=== PATIENT | male | born 1990 | race African-American/Black ===

== ENCOUNTER 2019-03-09 17:35 | Emergency (ER) | payer SELFPAY ==
[2019-03-09 17:44] VITALS: BP 139/74; PULSE 95; TEMP 98.7; BMI 23.7
[2019-03-09] MEDS ORDERED: SODIUM CHLORIDE 1,000 ML IV STA (18:12)
[2019-03-09] MEDS ORDERED: KETOROLAC TROMETHAMINE 30 MG/1 ML VIAL IVPUSH ONE (18:12)
--- NOTE | 2019-03-09 18:12 | PDOC ---
History of Present Illness - General Chief Complaint: Sore Throat Stated Complaint: [place] SORE THROAT DIFF SWALLOWING Time Seen by Provider: 03/09/19 17:52 - History of Present Illness Initial Comments: 03/09/19 18:46 Chief complaint: Sore throat HPI: For 2 days the patient has had a severe sore throat, unable to swallow food or fluids very well, with swollen painful glands in the neck. Mild nonproductive cough. Anorexia. No vomiting or diarrhea. No abdominal pain Review of systems: Denies fever/chills, chest pain, shortness of breath, abdominal pain, nausea, vomiting, diarrhea, visual or focal neurologic symptoms , unsteadiness of gait. Remainder of systems negative Past medical history: Mild asthma, no recent flareups. Frequent sore throats when he was a child Social/family history reviewed and noncontributory Physical exam: Alert and oriented well-developed well-nourished cooperative. Complains of pain when he swallows. There is fatigue, malaise, and body aches. Afebrile, vital signs normal HEENT: The throat is severely injected, but there is no focal swelling, mass, or exudate. Ears are clear. Nose is clear Neck is supple but there are multiple 1 to 2 cm tender anterior cervical nodes bilaterally Chest is clear full breath sounds bilaterally no wheezes rales or rhonchi CV regular without murmur rub or gallop pulses full and symmetric no JVD or edema no bruits 100 and regular Abdomen soft nontender without mass organomegaly Skin clear, no rash, adequate turgor, but mucous membranes are dry Neurological intact Extremities no CCE. Impression: Severe pharyngitis, possibilities include strep, viral/influenza, or infectious mono Plan: CBC and chemistries, intravenous fluids, analgesics, and further evaluation and treatment depending on response to therapy and the results of lab work. Consider steroids. Past History - Past Medical History Allergies/Adverse Reactions: Allergies Allergy/AdvReac Type Severity Reaction Status Date / Time No Known Allergies Allergy Unverified 03/09/19 17:38 Home Medications: Ambulatory Orders NK [No Known Home Medication] 03/09/19 Asthma: Yes COPD: No - Psycho Social/Smoking Cessation Hx Smoking History: Never smoked Information on smoking cessation initiated: No Hx Alcohol Use: No Drug/Substance Use Hx: No *Physical Exam - Vital Signs Last Vital Signs Temp Pulse Resp BP Pulse Ox 98.7 F 95 H 16 139/74 98 03/09/19 17:38 03/09/19 17:38 03/09/19 17:38 03/09/19 17:38 03/09/19 17:38 ED Treatment Course - LABORATORY CBC & Chemistry Diagram: 03/09/19 18:54 03/09/19 18:54 Medical Decision Making - Medical Decision Making 03/11/19 07:29 Patient received intravenous Toradol and is receiving intravenous fluids. He is feeling better. Tolerating p.o. fluids. Labs pending. Signed out to Dr. Shea at 7 PM pending lab results, further evaluation and treatment. Discharge - Discharge Information Problems reviewed: Yes Clinical Impression/Diagnosis: Pharyngitis Qualifiers: Pharyngitis/tonsillitis etiology: unspecified etiology Qualified Code(s): J02.9 - Acute pharyngitis, unspecified Condition: Stable Disposition: HOME - Follow up/Referral Referrals: Mitchell Suarez MD [Primary Care Provider] - - Patient Discharge Instructions Additional Instructions: Your test for strep was negative however a culture was sent and in about 25% of negative strep see a false negative and your culture may come back positive. If your culture is positive we will notify you and you will need to take some antibiotics. However it is more likely that you have a viral etiology to your sore throat. Infectious mono is a possibility. The treatment for a viral etiology is symptomatic treatment you can alternate acetaminophen with ibuprofen every 3-4 hours as needed to control fevers, pain, body aches and headache. Return to the emergency department immediately with ANY new, persistent or worsening symptoms. Continue any medications as previously prescribed by your physician. You should follow up with your primary doctor as soon as possible regarding today's emergency department visit. . Please make sure your doctor reviews the results of your emergency evaluation. Thank you for coming to the Emergency Department today for your care. It was a pleasure to see you today. Please note that your evaluation is INCOMPLETE until you follow-up with your doctor. - Post Discharge Activity
[2019-03-09] MEDS ORDERED: KETOROLAC TROMETHAMINE 30 MG/1 ML VIAL ONE (18:30)
[2019-03-09 18:58] LABS: HEMOGLOBIN 14.5 GM/dl (11.7-16.9)
[2019-03-09 19:02] LABS: BASO % 2.2 % (0-2.0); EOS % 0.7 % (0-4.5); HEMATOCRIT 43.7 % (35.4-49); LYMPH % 10.1 % (8-40); MCHC 33.3 g/dl (32.0-35.9); MEAN CELL VOLUME 96.1 fl (80-96); MEAN PLT VOLUME 8.9 fl (7.5-11.1); MONO % 6.2 % (3.8-10.2); NEUT % 80.8 % (42.8-82.8); PLATELET COUNT 392 K/MM3 (134-434); RBC 4.55 M/mm3 (4.00-5.60); RDW 12.9 % (11.9-15.9); WHITE BLOOD COUNT 13.9 K/mm3 (4.0-10.8)
[2019-03-09 19:08] LABS: ALBUMIN 4.1 g/dl (3.4-5.0); BILIRUBIN,TOTAL 0.6 mg/dl (0.2-1); CALCIUM 9.5 mg/dl (8.5-10); POTASSIUM 4.1 mmol/L (3.5-5.1); TOT PROT 8.7 g/dl (6.4-8.2)
[2019-03-09] MEDS ORDERED: DEXAMETHASONE SOD PHOSPHATE 10 MG/1 ML VIAL IVPUSH ONE (19:29)
--- NOTE | 2019-03-09 19:30 | PDOC ---
*Physical Exam - Vital Signs Last Vital Signs Temp Pulse Resp BP Pulse Ox 98.7 F 95 H 16 139/74 98 03/09/19 17:38 03/09/19 17:38 03/09/19 17:38 03/09/19 17:38 03/09/19 17:38 ED Treatment Course - LABORATORY CBC & Chemistry Diagram: 03/09/19 18:54 03/09/19 18:54 - ADDITIONAL ORDERS Additional order review: Laboratory Results 03/09/19 18:54 Sodium 134 L Potassium 4.1 Chloride 100 Carbon Dioxide 26 Anion Gap 8 BUN 11.0 Creatinine 1.0 Est GFR (CKD-EPI)AfAm 119.02 Est GFR (CKD-EPI)NonAf 102.69 Random Glucose 84 Calcium 9.5 Total Bilirubin 0.6 AST 20 ALT 19 Alkaline Phosphatase 66 Total Protein 8.7 H Albumin 4.1 03/09/19 18:54 RBC 4.55 MCV 96.1 H MCHC 33.3 RDW 12.9 MPV 8.9 Neutrophils % 80.8 Lymphocytes % 10.1 Monocytes % 6.2 Eosinophils % 0.7 Basophils % 2.2 H - Medications Given in the ED: ED Medications Discontinued Medications Generic Name Dose Route Start Last Admin Trade Name Freq PRN Reason Stop Dose Admin Sodium Chloride 1,000 mls @ 1,000 mls/hr 03/09/19 18:12 03/09/19 18:37 Normal Saline - IV 03/09/19 19:11 1,000 mls/hr ASDIR STA Administration Ketorolac Tromethamine 30 mg 03/09/19 18:12 03/09/19 18:38 Toradol Injection - IVPUSH 03/09/19 18:13 30 mg ONCE ONE Administration Discharge - Discharge Information Problems reviewed: Yes Clinical Impression/Diagnosis: Pharyngitis Qualifiers: Pharyngitis/tonsillitis etiology: unspecified etiology Qualified Code(s): J02.9 - Acute pharyngitis, unspecified Condition: Stable - Admission No - Follow up/Referral Referrals: Mitchell Suarez MD [Primary Care Provider] - - Patient Discharge Instructions Additional Instructions: Your test for strep was negative however a culture was sent and in about 25% of negative strep see a false negative and your culture may come back positive. If your culture is positive we will notify you and you will need to take some antibiotics. However it is more likely that you have a viral etiology to your sore throat. Infectious mono is a possibility. The treatment for a viral etiology is symptomatic treatment you can alternate acetaminophen with ibuprofen every 3-4 hours as needed to control fevers, pain, body aches and headache. Return to the emergency department immediately with ANY new, persistent or worsening symptoms. Continue any medications as previously prescribed by your physician. You should follow up with your primary doctor as soon as possible regarding today's emergency department visit. . Please make sure your doctor reviews the results of your emergency evaluation. Thank you for coming to the Emergency Department today for your care. It was a pleasure to see you today. Please note that your evaluation is INCOMPLETE until you follow-up with your doctor. - Post Discharge Activity
[2019-03-09] MEDS ORDERED: DEXAMETHASONE SOD PHOSPHATE 10 MG/1 ML VIAL ONE (19:31)
== END 2019-03-09 19:44 | disposition home or self-care (01) ==
LOC: FER 17:35
PROC: 3E033GC Introduction of Other Therapeutic Substance into Peripheral Vein, Percutaneous Approach (ICD-10-PCS; principal; 2019-03-09)
DX: J02.9 Acute pharyngitis, unspecified (principal)
CPT/HCPCS: 36415; 80053; 85025; 87070; 87880; 99282-25; J1100; J7030

== ENCOUNTER 2019-12-26 00:22 | Emergency (ER) | payer OTHER ==
--- OUTSIDE RECORDS SUMMARY | 2019-12-26 00:39 | XMS ---
:1990 Author Organization [facility] Support Name Relationship Address Phone ALEKSANDR MENDOZA BROTHER [address] [place] [address] DND ELEVATOR Unavailable [address] [place] [id number] LENNY KUMAR FATHER [address] [place] [address] D AND D ELEVATOR Unavailable [address] [facility] [place] [address] KARLEY MENDOZA BROTHER [address] [place] [address] Re-disclosure Warning The records that you are about to access may contain information from federally- assisted alcohol or drug abuse programs. If such information is present, then the following federally mandated warning applies: This information has been disclosed to you from records protected by federal confidentiality rules (42 CFR part 2). The federal rules prohibit you from making any further disclosure of this information unless further disclosure is expressly permitted by the written consent of the person to whom it pertains or as otherwise permitted by 42 CFR part 2. A general authorization for the release of medical or other information is NOT sufficient for this purpose. The Federal rules restrict any use of the information to criminally investigate or prosecute any alcohol or drug abuse patient.The records that you are about to access may contain highly sensitive health information, the redisclosure of which is protected by Article 27-F of the [facility] Public Health law. If you continue you may haveaccess to information: Regarding HIV / AIDS; Provided by facilities licensed or operated by the [facility] Office of Mental Health; or Provided by the [facility] Office for People With Developmental Disabilities. If such information is present, then the following [facility] mandated warning applies: This information has been disclosed to you from confidential records which are protected by state law. State law prohibits you from making any further disclosure of this information without the specific written consent of the person to whom it pertains, or as otherwise permitted by law. Any unauthorized further disclosure in violation of state law may result in a fine or penitentiary sentence or both. A general authorization for the release of medical or other information is NOT sufficient authorization for further disclosure. Insurance Providers Payer name Policy type Policy ID Covered Covered democrat's Policy P qiuncy / Coverage democrat ID relationship to Sales Inf ormation type sales [employer] HMO [id number] SELF PAY SP INSURANCE [employer] [id number] HEALTH
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
[2019-12-26] MEDS ORDERED: LIDOCAINE 1%/EPI 1:100000 (50 ML MULTI DOSE VIAL) INF ONE (01:27)
[2019-12-26] MEDS ORDERED: LIDOCAINE 1%/EPI 1:100000 (20 ML MULTI DOSE VIAL) ONE (01:29)
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
[2019-12-26] MEDS ORDERED: CEPHALEXIN MONOHYDRATE 500 MG CAPSULE (UD) PO ONE (01:44)
[2019-12-26 02:16] VITALS: BMI 19.5
[2019-12-26] MEDS ORDERED: CEPHALEXIN MONOHYDRATE 500 MG CAPSULE (UD) ONE (02:28)
[2019-12-26 03:04] VITALS: BP 00/00; PULSE 0
== END 2019-12-26 02:46 | disposition left against medical advice (07) ==
LOC: JER 00:22
PROC: 08QRXZZ Repair Left Lower Eyelid, External Approach (ICD-10-PCS; principal; 2019-12-26)
DX: S05.32XA Ocular laceration without prolapse or loss of intraocular tissue, left eye, initial encounter (principal)
CPT/HCPCS: 99284-25